=== PATIENT | female | born 1990 | race Caucasian/White ===

== ENCOUNTER 2018-03-22 07:29 | Emergency (ER) | payer MEDICAID, OTHER ==
[~2018-03-22] VITALS: Ht 157.5 cm; Wt 48.0 kg
[~2018-03-22 07:29] MED LIST: METO-292 PO; ONDA8TAB9 PO
[2018-03-22] MEDS ORDERED: LORazepam 2 mg/ml vial IV ONE (08:15)
[2018-03-22] MEDS ORDERED: normal saline 1000ML IV soln IVB ONE (08:15)
[2018-03-22] MEDS ORDERED: ondansetron/PF 4mg/2ml inj IV ONE (08:15)
[2018-03-22] MEDS ORDERED: ketorolac tromethamine 15mg/ml inj. IV ONE (08:15)
[2018-03-22] MEDS ORDERED: HYDROmorphone inj. 0.5 MG/0.5 ML DISP.SYRIN IV ONE (09:35)
[2018-03-22] MEDS ORDERED: metoclopramide 5 mg/ml inj IV ONE (09:35)
[2018-03-22] MEDS ORDERED: diphenhydrAMINE 50 mg/ml inj IV ONE (09:35)
[2018-03-22] MEDS ORDERED: HYDR-4383 PO (09:42)
[2018-03-22 10:00] VITALS: BP 115/70
== END 2018-03-22 10:14 | disposition home or self-care (01) ==
LOC: ER 07:29
DX: R11.10 Vomiting, unspecified (principal); N94.6 Dysmenorrhea, unspecified; J45.909 Unspecified asthma, uncomplicated; G89.29 Other chronic pain; Z88.5 Allergy status to narcotic agent; Z88.8 Allergy status to other drugs, medicaments and biological substances; Z79.899 Other long term (current) drug therapy
CPT/HCPCS: 96361; 96374; 96375; 99283; J1170; J1200; J1885; J2060; J2405; J2765; J7030

== ENCOUNTER → 2018-04-03 | Emergency (ER) | payer MEDICAID, OTHER ==
[~2018-04-03] VITALS: Ht 157.5 cm; Wt 50.9 kg
[~2018-04-03] MED LIST changes: +HYDR-4383 PO; +LORazepam 2 mg/ml vial IV ONE; +ONDA8TAB13 PO; +diphenhydrAMINE 50 mg/ml inj IV ONE; +iohexol 300mg/ml 100ml inj. ONE; +morphine 4 MG/ML inj SYRINge IV ONE; +normal saline 1000ML IV soln IVB ONE; +ondansetron/PF 4mg/2ml inj IV ONE; +proCHLORperazine 10 MG/2 ml inj IV ONE
[2018-04-03 18:10] LABS: URINE HCG NEGATIVE (NEG)
[2018-04-03 18:15] LABS: CLARITY,URINE SLIGHTLY CLOUDY (Clear); COLOR,URINE YELLOW (Yellow); GLUCOSE, URINE NEGATIVE (Neg); PH,URINE 8.5 (4.8-8.0); PROTEIN,URINE >=300 mg/dl (Neg); UA COLLECTION TYPE CLN CATCH MIDSTREAM
[2018-04-03 18:16] LABS: KETONES,URINE 15 mg/dl (Neg); LEUKOCYTE ESTERASE ,URINE NEGATIVE (Neg); NITRITES, URINE NEGATIVE (Neg); OCCULT BLOOD,URINE NEGATIVE (Neg)
[2018-04-03 18:25] LABS: BACTERIA,URINE 1+ /HPF (Neg); MUCUS STRANDS MODERATE /LPF (Neg); RBC,URINE 0-2 /HPF (0-2); SQUAMOUS EPITHELIAL CELL,UR MANY /LPF (FEW); WBC,URINE 0-4 /HPF (0-4)
[2018-04-03 18:38] LABS: BASOPHILS # (AUTO) 0.2 X10'3 (0-0.2); BASOPHILS % (AUTO) 1.3 % (0-1); EOSINOPHILS % (AUTO) 0.2 % (0-6); HEMOGLOBIN 15.2 g/dl (12.0-16.0); LYMPHOCYTES # (AUTO) 1.5 X10'3 (1.1-4.8); LYMPHOCYTES % (AUTO) 10.4 % (21-51); MEAN CORPUSCULAR HEMOGLOBIN 30.8 PG (27.0-31.0); MEAN CORPUSCULAR HGB CONC 32.4 % (33.0-36.5); MEAN CORPUSCULAR VOLUME 95.1 FL (78-98); MEAN PLATELET VOLUME 8.9 FL (7.4-10.4); MONOCYTES # (AUTO) 0.3 X10'3 (0-0.9); MONOCYTES % (AUTO) 1.7 % (2-12); NEUTROPHILS # (AUTO) 12.9 X10'3 (1.8-7.7); NEUTROPHILS % (AUTO) 86.4 % (42-75); PLATELET COUNT 376 X10'3 (140-440); RED BLOOD COUNT 4.94 X10'6 (4.20-5.60); RED CELL DISTRIBUTION WIDTH 12.6 % (11.5-14.5); WHITE BLOOD COUNT 14.9 X10'3 (4.5-11.0)
[2018-04-03 20:19] LABS: PROTHROMBIN TIME 9.9 SECONDS (9.0-12.0)
[2018-04-03 20:20] LABS: ALANINE AMINOTRANSFERASE 49 U/L (12-78); ALBUMIN 4.6 G/DL (3.4-5.0); ALBUMIN/GLOBULIN RATIO 1.1 (1.1-1.5); ALKALINE PHOSPHATASE 66 IU/L (46-116); ANION GAP 11 (8-16); ASPARTATE AMINO TRANSFERASE 19 U/L (10-37); BILIRUBIN,TOTAL 0.3 MG/DL (0.1-1.0); BLOOD UREA NITROGEN 12 MG/DL (7-18); BUN/CREATININE RATIO 11.4 (6.6-38.0); CALCIUM 9.8 MG/DL (8.5-10.1); CHLORIDE 102 MMOL/L (99-107); CREATININE 1.05 MG/DL (0.40-0.90); GLUCOSE 163 MG/DL (70-104); POTASSIUM 4.4 MMOL/L (3.5-5.1); SODIUM 141 MMOL/L (135-145); TOTAL CARBON DIOXIDE 28.4 MMOL/L (24-32); TOTAL PROTEIN 8.7 G/DL (6.4-8.2); eGFR 62 ML/MIN
[2018-04-03 23:32] VITALS: BP 123/85
== END | disposition home or self-care (01) ==
LOC: ER 17:48
DX: R10.13 Epigastric pain (principal); R11.10 Vomiting, unspecified; R10.84 Generalized abdominal pain; J45.909 Unspecified asthma, uncomplicated; G89.29 Other chronic pain; F17.200 Nicotine dependence, unspecified, uncomplicated; Z88.6 Allergy status to analgesic agent; Z88.5 Allergy status to narcotic agent
CPT/HCPCS: 36415; 74177; 80053; 81001; 81025; 85025; 85610; 96361; 96374; 96375; 99284; J0780; J1200; J2060; J2270; J2405; J7030; Q9967

== ENCOUNTER 2019-09-12 10:43 | Emergency (ER) | payer MEDICAID, OTHER ==
[~2019-09-12] VITALS: Ht 157.5 cm; Wt 50.0 kg
[~2019-09-12 10:43] MED LIST changes: -LORazepam 2 mg/ml vial IV ONE; -diphenhydrAMINE 50 mg/ml inj IV ONE; -iohexol 300mg/ml 100ml inj. ONE; -morphine 4 MG/ML inj SYRINge IV ONE; -normal saline 1000ML IV soln IVB ONE; -ondansetron/PF 4mg/2ml inj IV ONE; -proCHLORperazine 10 MG/2 ml inj IV ONE
[2019-09-12] MEDS ORDERED: normal saline 1000ML IV soln IVB ONE (11:10)
[2019-09-12] MEDS ORDERED: haloperidol lactate 5mg/ml inj IM ONE (11:10)
[2019-09-12] MEDS ORDERED: LORazepam 2 mg/ml vial IV ONE (11:10)
--- NOTE | 2019-09-12 12:04 | NUR ---
WHEN AVAILABLE TO PLEASE CALL BACK FAMILY [facility] [phone]
[2019-09-12 12:14] LABS: BASOPHILS # (AUTO) 0.1 X10'3 (0-0.2); BASOPHILS % (AUTO) 0.8 % (0-1); EOSINOPHILS % (AUTO) 0 % (0-6); HEMATOCRIT 45.7 % (35.0-45.0); LYMPHOCYTES # (AUTO) 1.5 X10'3 (1.1-4.8); LYMPHOCYTES % (AUTO) 10.7 % (21-51); MEAN CORPUSCULAR HEMOGLOBIN 29.6 PG (27.0-31.0); MEAN CORPUSCULAR HGB CONC 32.9 g/dL (33.0-36.5); MEAN PLATELET VOLUME 9.1 FL (7.4-10.4); MONOCYTES # (AUTO) 0.5 X10'3 (0-0.9); MONOCYTES % (AUTO) 3.8 % (2-12); NEUTROPHILS # (AUTO) 11.8 X10'3 (1.8-7.7); NEUTROPHILS % (AUTO) 84.7 % (42-75); PLATELET COUNT 383 X10'3 (140-440); RED BLOOD COUNT 5.08 X10'6 (4.20-5.60); RED CELL DISTRIBUTION WIDTH 13.4 % (11.5-14.5)
[2019-09-12 12:27] LABS: ALANINE AMINOTRANSFERASE 27 U/L (12-78); ALBUMIN 4.7 G/DL (3.4-5.0); ALBUMIN/GLOBULIN RATIO 1.2 (1.1-1.5); ALKALINE PHOSPHATASE 70 IU/L (46-116); ANION GAP 13 (8-16); ASPARTATE AMINO TRANSFERASE 17 U/L (10-37); BILIRUBIN,TOTAL 0.7 MG/DL (0.1-1.0); BLOOD UREA NITROGEN 15 MG/DL (7-18); BUN/CREATININE RATIO 13.2 (6.6-38.0); CALCIUM 10.1 MG/DL (8.5-10.1); CHLORIDE 105 MMOL/L (99-107); CREATININE 1.14 MG/DL (0.40-0.90); GLUCOSE 156 MG/DL (70-104); LIPASE 64 U/L (73-393); POTASSIUM 4.2 MMOL/L (3.5-5.1); SODIUM 141 MMOL/L (135-145); TOTAL CARBON DIOXIDE 23.2 MMOL/L (24-32); TOTAL PROTEIN 8.5 G/DL (6.4-8.2); eGFR 56 ML/MIN
[2019-09-12 14:11] VITALS: BP 113/95
== END 2019-09-12 14:17 | disposition home or self-care (01) ==
LOC: ER 10:43
DX: G43.A0 Cyclical vomiting, in migraine, not intractable (principal); E86.0 Dehydration; F12.20 Cannabis dependence, uncomplicated; J45.909 Unspecified asthma, uncomplicated; G89.29 Other chronic pain; R11.2 Nausea with vomiting, unspecified; F41.9 Anxiety disorder, unspecified; Z72.89 Other problems related to lifestyle; Z88.8 Allergy status to other drugs, medicaments and biological substances; Z79.899 Other long term (current) drug therapy
CPT/HCPCS: 36415; 80053; 83690; 85025; 96361; 96372; 96374; 99284; J1630; J2060; J7030; 99283

== ENCOUNTER → 2021-02-25 | Emergency (ER) | payer MEDICAID, OTHER ==
[~2021-02-25] VITALS: Ht 157.5 cm; Wt 53.1 kg
[2021-02-25 03:08] VITALS: BP 140/118
== END | disposition left against medical advice (07) ==
LOC: ER 03:02
DX: F41.9 Anxiety disorder, unspecified (principal); Z53.21 Procedure and treatment not carried out due to patient leaving prior to being seen by health care provider